=== PATIENT | female | born 1960 | race Caucasian/White ===

== ENCOUNTER → 2016-10-30 | Outpatient (CLI) | payer MEDICAID ==
[2016-10-30 14:31] LABS: CH 30.5; CHCM 34.1; HCT 40.8 % (34.0-46.0); HDW 2.83; HGB 13.6 gm/dL (11.4-16.0); MCHC 33.2 g/dL (31.0-37.0); MCV 90.2 fL (80.0-100.0); Mean Platelet Volume 7.3; RBC 4.53 m/uL (3.80-5.40); RDW 14.3 % (11.5-15.5); WBC 6.8 k/uL (3.8-10.6)
[2016-10-30 14:41] LABS: ALT 30 U/L (9-52); AST 16 U/L (14-36); Alkaline Phosphatase 98 U/L (38-126); Anion Gap 13 mmol/L; Blood Urea Nitrogen 14 mg/dL (7-17); Calcium 9.5 mg/dL (8.4-10.2); Carbon Dioxide 24 mmol/L (22-30); Chloride 104 mmol/L (98-107); Glucose 94 mg/dL (74-99); Non-African American GFR(MDRD) >60 (>60 ml/min/1.73 sqM); Potassium 4.1 mmol/L (3.5-5.1); Sodium 141 mmol/L (137-145); Total Bilirubin 0.9 mg/dL (0.2-1.3); Total Protein 7.6 g/dL (6.3-8.2)
== END | disposition home or self-care (01) ==
LOC: LABWHC1 14:01
PROVIDERS: ATTEND Internal Medicine Gastroenterology
DX: K51.90 Ulcerative colitis, unspecified, without complications (principal)
CPT/HCPCS: 36415; 80053; 85027

== ENCOUNTER → 2017-01-25 | Outpatient (CLI) | payer MEDICAID ==
[~2017-01-25] MED LIST: COSYNTROPIN 0.25 MG VIAL IVP ONE
[2017-01-25 08:20] VITALS: BP 143/88; PULSE 71; RESP 18; TEMP 98.1
[2017-01-26 11:49] LABS: Urine VMA/Creatinine 24 Hour 1.3 gm/24h (0.8-1.8)
[2017-01-29 12:02] LABS: Epinephrine 24 Hr Urine 5 ug/day (0-20); Norepinephrine 24 Hr Urine 46 ug/day (15-80); Total Catecholamines Urine 51 ug/day (15-100); Urine Creatinine,24 Hr 1.3 gm/24h (0.8-1.8)
[2017-01-29 12:06] LABS: Metanephrines 24 Hour,Urine 96 ug/day (52-341); Normetanephrine 24 Hour,Urine 299 ug/day (88-444); Total Metanephrines 24 Hour,Ur 395 ug/day (140-785); Urine Creatinine, 24 Hr 1.3 gm/24h (0.8-1.8)
== END | disposition home or self-care (01) ==
LOC: PROCWHC3 07:57
PROVIDERS: ATTEND Internal Medicine Endocrinology, Diabetes & Metabolism
DX: R23.2 Flushing (principal)
CPT/HCPCS: 82384; 83835; 84585; 99213

== ENCOUNTER 2017-02-11 09:35 | Emergency (ER) | payer MEDICAID ==
[2017-02-11] MEDS ORDERED: SODIUM CHLORIDE 0.9% 1,000 ML IV STA (09:48)
[2017-02-11] MEDS ORDERED: ONDANSETRON 4 MG/2 ML VIAL IVP STA (09:48)
[2017-02-11] MEDS ORDERED: SODIUM CHLORIDE 0.9% 500 ML IV STA (09:48)
[2017-02-11] MEDS ORDERED: RX INFO: IV CONTRAST WAS GIVEN 1 EACH MISC MISCELLANE PRN (09:48)
[2017-02-11] MEDS ORDERED: PANTOPRAZOLE 40 MG/10 ML VIAL IVP STA (09:49)
--- NOTE | 2017-02-11 09:52 | ED ---
Nausea/Vomiting/Diarrhea HPI - General Chief complaint: Nausea/Vomiting/Diarrhea Stated complaint: not feeling well Time Seen by Provider: 02/11/17 09:44 Source: patient, RN notes reviewed Mode of arrival: ambulatory Limitations: no limitations - History of Present Illness Initial comments: This a 56 year-old female presents emergency Department chief complaint of not feeling well. Patient states she's had diarrhea over the last week or more. He states she has a history of colitis and had similar symptoms in the past in which she was hospitalized for. Patient states that this is approximately 3 years ago and did have upper and lower scopes. Patient states she saw Dr. Burger that time. Patient denies any fever, chills. She does admit to some nausea without any episodes of vomiting. Patient denies any melena or hematochezia. She states she's having multiple episodes of diarrhea daily there is very watery in nature. Patient denies history of diverticulitis or C. diff. Patient denies any chest pain, shortness breath, headache or dizziness. She states she does feel very fatigued and run down. - Related Data Home Medications Medication Instructions Recorded Confirmed Mesalamine [Lialda] 4.8 gm PO DAILY 10/28/13 02/11/17 Omeprazole [PriLOSEC] 20 mg PO DAILY 10/28/13 02/11/17 azaTHIOprine [Imuran] 100 mg PO DAILY 10/28/13 02/11/17 Atorvastatin [Lipitor] 40 mg PO DAILY 02/11/17 02/11/17 Lisinopril [Zestril] 10 mg PO DAILY 02/11/17 02/11/17 Previous Rx's Medication Instructions Recorded Hydrocodone/Acetaminophen [[place] 1 tab PO Q6HR PRN #20 tab 02/11/17 5-325] Levofloxacin [Levaquin] 500 mg PO DAILY #10 tab 02/11/17 Loperamide [Imodium] 2 mg PO QID #20 capsule 02/11/17 Ondansetron Odt [Zofran Odt] 4 mg PO Q8HR PRN #14 tab 02/11/17 metroNIDAZOLE [Flagyl] 500 mg PO TID #30 tab 02/11/17 predniSONE 10 mg PO DIRECTED #30 tab 02/11/17 Allergies Allergy/AdvReac Type Severity Reaction Status Date / Time No Known Allergies Allergy Verified 02/11/17 09:58 Review of Systems ROS Statement: Those systems with pertinent positive or pertinent negative responses have been documented in the HPI. ROS Other: All systems not noted in ROS Statement are negative. Past Medical History Additional Past Medical History / Comment(s): colitis,migraines, hypoglycemia, colitis, chrons disease History of Any Multi-Drug Resistant Organisms: None Reported Past Surgical History: Hysterectomy, Orthopedic Surgery Additional Past Surgical History / Comment(s): left knee surgery Past Anesthesia/Blood Transfusion Reactions: Postoperative Nausea & Vomiting ( PONV) Past Psychological History: No Psychological Hx Reported Smoking Status: Former smoker General Exam Limitations: no limitations General appearance: alert, in no apparent distress Head exam: Present: atraumatic, normocephalic, normal inspection Respiratory exam: Present: normal lung sounds bilaterally. Absent: respiratory distress, wheezes, rales, rhonchi, stridor Cardiovascular Exam: Present: regular rate, normal rhythm, normal heart sounds. Absent: systolic murmur, diastolic murmur, rubs, gallop, clicks GI/Abdominal exam: Present: soft, tenderness (Mild to moderate lower abdominal tenderness), normal bowel sounds. Absent: distended, guarding, rebound, rigid Back exam: Absent: CVA tenderness (R), CVA tenderness (L) Neurological exam: Present: alert, oriented X3, CN II-XII intact Skin exam: Present: warm, dry, intact, normal color. Absent: rash Course Vital Signs 02/11/17 02/11/17 09:37 12:21 Temperature 99.0 F 99.9 F H Pulse Rate 103 H 84 Respiratory 20 18 Rate Blood Pressure 119/81 116/61 O2 Sat by Pulse 99 98 Oximetry Medical Decision Making - Medical Decision Making 56-year-old female to emergency Department for abdominal pain. Patient appears to have active Crohn's disease. Patient will be advised to follow up Dr. Burger. Patient's labwork is unremarkable. Patient's case discussed with Dr. Castillo. Patient was started on Imodium, steroids, pain medication, antinausea medication - Lab Data Result diagrams: 02/11/17 10:00 02/11/17 10:00 Lab Results 02/11/17 02/11/17 Range/Units 10:00 10:00 WBC 11.0 H (3.8-10.6) k/uL RBC 4.36 (3.80-5.40) m/uL Hgb 13.1 (11.4-16.0) gm/dL Hct 38.8 (34.0-46.0) % MCV 88.9 (80.0-100.0) fL MCH 30.1 (25.0-35.0) pg MCHC 33.9 (31.0-37.0) g/dL RDW 14.4 (11.5-15.5) % Plt Count 292 (150-450) k/uL Neutrophils % 67 % Lymphocytes % 13 % Monocytes % 6 % Eosinophils % 12 % Basophils % 1 % Neutrophils # 7.4 (1.3-7.7) k/uL Lymphocytes # 1.4 (1.0-4.8) k/uL Monocytes # 0.6 (0-1.0) k/uL Eosinophils # 1.3 H (0-0.7) k/uL Basophils # 0.1 (0-0.2) k/uL Sodium 140 (137-145) mmol/L Potassium 3.6 (3.5-5.1) mmol/L Chloride 106 (98-107) mmol/L Carbon Dioxide 20 L (22-30) mmol/L Anion Gap 14 mmol/L BUN 7 (7-17) mg/dL Creatinine 0.57 (0.52-1.04) mg/dL Est GFR (MDRD) Af Amer >60 (>60 ml/min/1.73 sqM) Est GFR (MDRD) Non-Af >60 (>60 ml/min/1.73 sqM) Glucose 97 (74-99) mg/dL Calcium 9.2 (8.4-10.2) mg/dL Total Bilirubin 0.7 (0.2-1.3) mg/dL AST 12 L (14-36) U/L ALT 26 (9-52) U/L Alkaline Phosphatase 116 (38-126) U/L Total Protein 6.8 (6.3-8.2) g/dL Albumin 3.8 (3.5-5.0) g/dL Amylase 78 (30-110) U/L Lipase 142 (23-300) U/L Disposition Clinical Impression: Crohn's colitis Disposition: HOME SELF-CARE Condition: Stable Instructions: Colitis (ED) Additional Instructions: Please return to the Emergency Department if symptoms worsen or any other concerns. Prescriptions: Hydrocodone/Acetaminophen [[place] 5-325] 1 tab PO Q6HR PRN #20 tab PRN Reason: Pain Levofloxacin [Levaquin] 500 mg PO DAILY #10 tab Loperamide [Imodium] 2 mg PO QID #20 capsule metroNIDAZOLE [Flagyl] 500 mg PO TID #30 tab Ondansetron Odt [Zofran Odt] 4 mg PO Q8HR PRN #14 tab PRN Reason: Nausea predniSONE 10 mg PO DIRECTED #30 tab Referrals: Lizeth Joshi MD [Primary Care Provider] - 1-2 days Essie Carlos MD [STAFF PHYSICIAN] - 1-2 days Time of Disposition: 12:32
[2017-02-11 10:26] LABS: Basophils # (A) 0.1 k/uL (0-0.2); Basophils % (A) 1 %; CH 29.7; CHCM 33.6; Eosinophils # (A) 1.3 k/uL (0-0.7); Eosinophils % (A) 12 %; HCT 38.8 % (34.0-46.0); HDW 3.04; HGB 13.1 gm/dL (11.4-16.0); Luc # (Auto) 0.16; Luc % (Auto) 2; Lymphocytes # (A) 1.4 k/uL (1.0-4.8); Lymphocytes % (A) 13 %; MCH 30.1 pg (25.0-35.0); MCHC 33.9 g/dL (31.0-37.0); MCV 88.9 fL (80.0-100.0); Mean Platelet Volume 6.8; Monocytes # (A) 0.6 k/uL (0-1.0); Monocytes % (A) 6 %; Neutrophils # (A) 7.4 k/uL (1.3-7.7); Neutrophils % (A) 67 %; RBC 4.36 m/uL (3.80-5.40); RDW 14.4 % (11.5-15.5); WBC (Perox) 11.24
[2017-02-11 10:36] LABS: ALT 26 U/L (9-52); AST 12 U/L (14-36); Alkaline Phosphatase 116 U/L (38-126); Amylase 78 U/L (30-110); Anion Gap 14 mmol/L; Blood Urea Nitrogen 7 mg/dL (7-17); Calcium 9.2 mg/dL (8.4-10.2); Carbon Dioxide 20 mmol/L (22-30); Chloride 106 mmol/L (98-107); Glucose 97 mg/dL (74-99); Non-African American GFR(MDRD) >60 (>60 ml/min/1.73 sqM); Potassium 3.6 mmol/L (3.5-5.1); Sodium 140 mmol/L (137-145); Total Bilirubin 0.7 mg/dL (0.2-1.3); Total Protein 6.8 g/dL (6.3-8.2)
--- NOTE | 2017-02-11 11:58 | CT ---
EXAMINATION TYPE: CT abdomen pelvis w con DATE OF EXAM: 02/11/2017 REFERENCE: Previous study dated 07/07/2014. HISTORY: abd pain HISTORY: Fever, not feeling well REFERENCE: NONE CT DLP: 787.4 mGy Automated exposure control for dose reduction was used. TECHNIQUE: Helical acquisition through the abdomen and pelvis was obtained following the oral ingesti on of without Oral Contrast and following intravenous administration of 100 mL of Omnipaque 300. The data was reformatted in axial, coronal and sagittal projections. FINDINGS: Visualized portions of the lungs are clear. There is no pleural or pericardial fluid. The heart is not enlarged. There is a tiny hiatal hernia. Within the abdomen, the liver is prominent, measuring 19 cm. This is in part due to a Airam's lobe. The gallbladder is been removed. The spleen is upper limits of normal in size. Both adrenal glands are normal. Both kidneys demonstrate function. There is a stable, 7.4 mm area of decreased attenuation in the low er pole of the left kidney, unchanged from previous. The pancreas is unremarkable. There is no significant retroperitoneal, iliac or inguinal adenopathy. The bladder is unremarkable. The uterus and ovaries are not visualized. There is diffuse mucosal thickening throughout the sigmoid region with various skip areas of increase d mucosal thickening throughout the remainder of the colon, most severe in the transverse colon. The appendix is normal. Small bowel loops are normal in caliber. There is no free fluid and no free air identified. There is mild facet arthropathy in the lower lumbar spine. There is hypertrophic spondylosis in the l ower dorsal spine. IMPRESSION: 1. THICKENING OF THE MUCOSA OF THE COLON WITH SKIP AREAS MOST CONSISTENT WITH CROHN'S DISEASE. 2. BORDERLINE HEPATOSPLENOMEGALY. 3. SMALL HIATAL HERNIA. 4. STABLE HYPOATTENUATING LESION IN THE LEFT KIDNEY, LIKELY REPRESENTING A CYST. THIS COULD BE PERFOR MED WITH ULTRASOUND. 5. DEGENERATIVE CHANGES WITHIN THE SPINE.
[2017-02-11 12:22] VITALS: RESP 18
[2017-02-11 12:34] LABS: Appearance,Urine Clear (Clear); Bilirubin,Urine Negative (Negative); Glucose,Urine (UA) Negative (Negative); Ketones,Urine Negative (Negative); Leukocyte Esterase,Urine Negative (Negative); Nitrite,Urine Negative (Negative); Protein,Urine Trace (Negative); UA Billing (MACRO vs. MICRO) CHEM; Urobilinogen,Urine <2.0 mg/dL (<2.0)
[2017-02-11 12:51] LABS: Specific Gravity,Urine >1.050 (1.001-1.035)
[2017-02-11 13:42] VITALS: BP 124/74; PULSE 96; TEMP 97.9
== END 2017-02-11 13:42 | disposition home or self-care (01) ==
LOC: EC 09:35
DX: K50.90 Crohn's disease, unspecified, without complications (principal); R19.7 Diarrhea, unspecified; Z87.891 Personal history of nicotine dependence; Z79.899 Other long term (current) drug therapy
CPT/HCPCS: 99284; 96374; 96375; 36415; 80053; 82150; 83690; 85025; 81003; 74177; J2405; Q9967; C9113

== ENCOUNTER → 2018-03-07 | Outpatient (CLI) | payer MEDICAID ==
--- NOTE | 2018-03-07 17:21 | US ---
EXAMINATION TYPE: US venous doppler duplex LE LT DATE OF EXAM: 03/07/2018 5:05 PM COMPARISON: NONE CLINICAL HISTORY: M79.662 pain in left lower ext. SIDE PERFORMED: Left TECHNIQUE: The lower extremity deep venous system is examined utilizing real time linear array sonog zoey with graded compression, doppler sonography and color-flow sonography. VESSELS IMAGED: External Iliac Vein (EIV) Common Femoral Vein Deep Femoral Vein Greater Saphenous Vein * Femoral Vein Popliteal Vein Small Saphenous Vein * Proximal Calf Veins (* superficial vessels) Left Leg: Negative for DVT IMPRESSION: No evidence of deep venous thrombosis left leg.
== END ==
LOC: RADUSMAIN 16:44
PROVIDERS: ATTEND Internal Medicine
DX: M79.89 Other specified soft tissue disorders (principal); M79.662 Pain in left lower leg

== ENCOUNTER → 2018-07-08 | Outpatient (CLI) | payer MEDICAID ==
[2018-07-08 09:44] LABS: HCT 39.8 % (34.0-46.0); HGB 13.4 gm/dL (11.4-16.0); MCH 30.1 pg (25.0-35.0); MCHC 33.7 g/dL (31.0-37.0); MCV 89.2 fL (80.0-100.0); Mean Platelet Volume 6.8; Platelet Count 257 k/uL (150-450); RBC 4.46 m/uL (3.80-5.40); RDW 13.8 % (11.5-15.5); WBC 6.4 k/uL (3.8-10.6)
[2018-07-08 11:43] LABS: Erythrocyte Sedimentation Rate 8 mm/hr (0-20)
[2018-07-08 18:26] LABS: Albumin 4.7 g/dL (3.80-4.90); Albumin/Globulin Ratio 2.35 (1.60-3.17); Anion Gap 6.2 mmol/L (4.00-12.00); Calcium 9.4 mg/dL (8.7-10.3); Carbon Dioxide 27.8 mmol/L (21.6-31.8); Potassium 4.3 mmol/L (3.5-5.5); Total Bilirubin 0.7 mg/dL (0.3-1.2); Total Protein 6.7 g/dL (6.2-8.2)
[2018-07-08 18:34] LABS: T4, Free (Free Thyroxine) 0.9 ng/dL (0.80-1.80)
== END | disposition home or self-care (01) ==
LOC: LABWHC1 08:55
PROVIDERS: ATTEND Internal Medicine
DX: R53.83 Other fatigue (principal); R61 Generalized hyperhidrosis
CPT/HCPCS: 36415; 80053; 84439; 84443; 85027; 85652

== ENCOUNTER → 2023-06-14 | Outpatient (CLI) | payer MEDICAID ==
--- NOTE | 2023-06-14 11:42 | US ---
EXAMINATION TYPE: US arterial LE single level DATE OF EXAM: 06/14/2023 10:30 AM CLINICAL INDICATION: Female, 62 years old with history of M62.81 MUSCLE WEAKNESS; Muscle weakness. History of: Smoker: Previous Hypertension: Yes Diabetic: No Hyperlipidemia: No TIA/CVA: No Previous Vascular Surgery: No CAD: No WV: No Vascular Ulcers: None Claudication: Both Gangrene: No Doppler Waveforms: Right: Multiphasic Left: Multiphasic Right Brachial Pressure: 159 Left Brachial Pressure: 162 Ankle-Brachial Indices: Right: 1.01 Left: 1.05 Toe Brachial Indices: Right: 0.63 Left: 0.78 IMPRESSION: 1. Ankle-brachial indices within normal limits. 2. Toe brachial indices with moderate to severe disease.
== END | disposition home or self-care (01) ==
LOC: RADUSWWP 09:42
PROVIDERS: ATTEND Family Medicine
DX: I73.9 Peripheral vascular disease, unspecified (principal); M62.81 Muscle weakness (generalized); I10 Essential (primary) hypertension; Z87.891 Personal history of nicotine dependence
CPT/HCPCS: 93922

== ENCOUNTER → 2024-08-12 | Outpatient (CLI) | payer MEDICARE ==
--- NOTE | 2024-08-18 08:44 | MM ---
Reason for Exam: Screening (asymptomatic). Last mammogram was performed 11 year(s) and 11 month(s) ago. Patient History: Menarche at age 12. First Full-Term at age 14. Left ovary removed at age 34. Right ovary removed at age 34. Hysterectomy at age 34. Postmenopausal. 2003, Benign Excisional Biopsy on the left side. Sister had breast cancer, age 37. Risk Values: Natalie 5 year model risk: 3.3%. NCI Lifetime model risk: 12.2%. Prior Study Comparison: 06/01/2006 Bilateral Diagnostic Mammogram, [facility]. 02/18/2009 Bilateral Screening Mammogram, [facility]. 08/19/2012 Bilateral Screening Mammogram, [facility]. Tissue Density: The breasts are heterogeneously dense, which may obscure small masses. Findings: There is no suspicious group of microcalcifications in either breast. Asymmetric nodular density upper left MLO view 5 cm from the nipple. Additional views are recommended. Overall Assessment: Incomplete: need additional imaging evaluation, BI-RAD 0 Management: Diagnostic Mammogram of the left breast. . Patient should continue monthly self-breast exams. A clinical breast exam by your physician is recommended on an annual basis. This exam should not preclude additional follow-up of suspicious palpable abnormalities. Note on Natalie scores and lifetime risk: 1. A Natalie score greater than 3% is considered moderate risk. If this is the case, consider specialist referral to assess eligibility for a risk reducing agent. 2. If overall lifetime risk for the development of breast cancer is 20% or higher, the patient may qualify for future screening with alternating mammogram and breast MRI. [facility], , 08/18/2024 8:39 AM. Electronically signed and approved by: Lavon Choudhary M.D. Radiologis
== END | disposition home or self-care (01) ==
LOC: RADMAMWWP 09:32
PROVIDERS: ATTEND Family Medicine
DX: Z12.31 Encounter for screening mammogram for malignant neoplasm of breast (principal); R92.333 Mammographic heterogeneous density, bilateral breasts; Z78.0 Asymptomatic menopausal state; Z80.3 Family history of malignant neoplasm of breast
CPT/HCPCS: 77063; 77067

== ENCOUNTER → 2024-08-20 | Outpatient (CLI) | payer MEDICARE ==
--- NOTE | 2024-08-20 13:53 | MM ---
Reason for Exam: Additional evaluation requested from abnormal screening. Last screening mammogram was performed less than 1 month ago. Patient History: Menarche at age 12. First Full-Term at age 14. Left ovary removed at age 34. Right ovary removed at age 34. Hysterectomy at age 34. Postmenopausal. 2003, Benign Excisional Biopsy on the left side. Sister had breast cancer, left, age 37. Risk Values: Natalie 5 year model risk: 3.3%. NCI Lifetime model risk: 12.2%. Prior Study Comparison: 06/01/2006 Bilateral Diagnostic Mammogram, [facility]. 02/18/2009 Bilateral Screening Mammogram, [facility]. 08/19/2012 Bilateral Screening Mammogram, [facility]. 08/12/2024 Bilateral MG 3D screening mammo w/cad, [facility]. Tissue Density: Left: The breasts are heterogeneously dense, which may obscure small masses. Findings: Analyzed By CAD. No evidence for residual or persistent nodule or mass. Findings are likely on the basis of summation density. Overall Assessment: Negative, BI-RAD 1 Management: Screening Mammogram of both breasts in 1 year. . Results were given to the patient verbally at the time of exam. Patient should continue monthly self-breast exams. A clinical breast exam by your physician is recommended on an annual basis. This exam should not preclude additional follow-up of suspicious palpable abnormalities. Note on Natalie scores and lifetime risk: 1. A Natalie score greater than 3% is considered moderate risk. If this is the case, consider specialist referral to assess eligibility for a risk reducing agent. 2. If overall lifetime risk for the development of breast cancer is 20% or higher, the patient may qualify for future screening with alternating mammogram and breast MRI. [facility] [place], , 08/20/2024 1:50 PM. Electronically signed and approved by: Lavon Choudhary M.D. Radiologis
== END | disposition home or self-care (01) ==
LOC: RADMAMWWP 13:12
PROVIDERS: ATTEND Family Medicine
DX: R92.8 Other abnormal and inconclusive findings on diagnostic imaging of breast (principal); R92.332 Mammographic heterogeneous density, left breast; Z78.0 Asymptomatic menopausal state; Z80.3 Family history of malignant neoplasm of breast
CPT/HCPCS: 77065; G0279; 77061